=== PATIENT | male | born 1980 | race Caucasian/White ===

== ENCOUNTER 2016-12-14 10:57 | Emergency (ER) | payer OTHER | END 2016-12-14 12:07 | disposition home or self-care (01) | LOC: ER 10:57 | DX: S05.02XA Injury of conjunctiva and corneal abrasion without foreign body, left eye, initial encounter (principal); F41.9 Anxiety disorder, unspecified; I10 Essential (primary) hypertension; Z23 Encounter for immunization; F17.200 Nicotine dependence, unspecified, uncomplicated; W22.8XXA Striking against or struck by other objects, initial encounter | CPT/HCPCS: 90471 ==

== ENCOUNTER 2016-12-19 07:02 | Emergency (ER) | payer OTHER | END 2016-12-19 08:33 | disposition home or self-care (01) | LOC: ER 07:02 | DX: M54.16 Radiculopathy, lumbar region (principal); I10 Essential (primary) hypertension; F41.9 Anxiety disorder, unspecified; F17.200 Nicotine dependence, unspecified, uncomplicated | CPT/HCPCS: 96372; J1885 ==

== ENCOUNTER 2017-02-05 09:00 | Emergency (ER) | payer OTHER | END 2017-02-05 09:30 | disposition home or self-care (01) | LOC: ER 09:00 | DX: A08.4 Viral intestinal infection, unspecified (principal); I10 Essential (primary) hypertension; F41.9 Anxiety disorder, unspecified; F17.200 Nicotine dependence, unspecified, uncomplicated ==